=== PATIENT | male | born 1950 | race Caucasian/White ===

== ENCOUNTER → 2022-09-26 07:37 | Outpatient (CLI) | payer MEDICARE, SELFPAY ==
--- NOTE | 2022-09-26 | DI.NM.S_ITS ---
PROCEDURE: NM EXERCISE TREADMILL NON NUC COMPARISON: None. INDICATIONS: Cardiac arrhythmia, unspecified FINDINGS: Rest ECG sinus rhythm. Isaias protocol 7:48, maximum heart rate 167 bpm (114% peak predicted), maximum blood pressure 200/100, 10.1 METS, KARMA -23%. Stress ECG sinus tachycardia, no ST segment changes, occasional PVCs. The patient did not complain of exercise-induced chest pain. IMPRESSION: No evidence of exercise-induced ischemia. Occasional PVCs noted with exercise. Borderline hypertensive response to exercise. Very good exercise capacity. Dictated by: Janine Ayoub D.O. on 09/26/2022 at 15:58 Approved by: Janine Ayoub D.O. on 09/26/2022 at 16:00
== END ==
PROVIDERS: PCP Family Medicine; Referring Provider Physician Assistant; Visit Provider Physician Assistant
DX: R07.9 Chest pain, unspecified (principal); I49.9 Cardiac arrhythmia, unspecified
CPT/HCPCS: 93017